=== PATIENT | female | born 1945 | race Caucasian/White ===

== ENCOUNTER → 2017-05-15 | Outpatient (CLI) | payer MEDICARE, SELFPAY ==
[~2017-05-15] MED LIST: ACET325 PO; ACETAMINOPHEN500 MG PO; ALPR.25 PO; AZELASTINE137 MCG/0.; Amitiza24 MCG PO; Amitiza8 MCG; Atrovent Inha12.9 GM INH; Bactrim 400-801 EACH PO; CEPH500 PO; CIPR500 PO; COMBIVENT RESPIM4 GM; COMBIVENT RESPIM4 GM INH; Cleocin HCl300 MG PO; Col-Rite100 MG PO; Colace100 MG PO; DIPH50; DIPH50 PO; DOCU100 PO; DOXY100T53 PO; ENOX40I SC; ESCI10 PO; FLUSAL1005 INH; Fibercon625 MG PO; GAVILAX17 GM; GAVILAX17 GM PO; HEARTBURN RELI150 MG PO; HYDCOR2.5C PR; HYDR1TAB94 PO; IPRAOI INH; LINZESS145 MCG PO; LINZESS290 MCG PO; MELA3 PO; METO25 PO; METRIBP PO; MILK OF MAGNESIA PO; MIRALAX17 GM PO; MONT10T PO; MOVANTIK25 MG; NITR100 PO; Norco 5-325 Ta1 EACH PO; Norco 7.5-3251 EACH PO; OMEPRAZOLE20 MG PO; ONDA4ODT MM; ONDA8 PO; OXYACE5T PO; OXYB5 PO; OXYC5; OXYC5 PO; Omeprazole20 M1; Omeprazole20 M1 PO; Percocet 5-3251 EACH PO; Phenergan25 MG; Phenergan25 MG PR; Prilosec Otc20 MG; Prilosec20 MG PO; Pyridium200 MG PO; RANI150 PO; SENN187 PO; SIME80CH; SIME80CH PO; Senna Plus Tab1 EACH PO; Ultram50 MG PO; Zofran Odt4 MG PO; Zofran Odt4 MG SL
== END | disposition home or self-care (01) ==
LOC: PLD 11:45 → LAB SHORT 11:45
DX: L57.0 Actinic keratosis (principal)
CPT/HCPCS: 88305

== ENCOUNTER 2017-06-03 12:43 | Inpatient (IN) | payer MEDICARE, SELFPAY ==
[~2017-06-03] VITALS: Ht 167.6 cm; Wt 82.8 kg
[~2017-06-03 12:43] MED LIST changes: -Amitiza8 MCG; -Atrovent Inha12.9 GM INH; -COMBIVENT RESPIM4 GM; -DIPH50; -ESCI10 PO; -Fibercon625 MG PO; -GAVILAX17 GM; -HEARTBURN RELI150 MG PO; -HYDR1TAB94 PO; -LINZESS145 MCG PO; -MELA3 PO; -MOVANTIK25 MG; -OMEPRAZOLE20 MG PO; -OXYC5; -Omeprazole20 M1; -SIME80CH; -Senna Plus Tab1 EACH PO
[2017-06-03] MEDS ORDERED: Amitiza8 MCG (21:24)
[2017-06-03] MEDS ORDERED: ACET325 PO (22:19)
[2017-06-03] MEDS ORDERED: DIPH50 (22:29)
[2017-06-03] MEDS ORDERED: Omeprazole20 M1 (22:31)
[2017-06-03] MEDS ORDERED: OXYC5 (22:33)
[2017-06-03] MEDS ORDERED: GAVILAX17 GM (22:34)
[2017-06-03] MEDS ORDERED: SIME80CH (22:36)
[2017-06-03] MEDS ORDERED: RANI150 PO (22:36)
[2017-06-03] MEDS ORDERED: MOVANTIK25 MG (22:41)
[2017-06-04 05:42] LABS: BASOPHILS ABSOLUTE AUTO 0.02 K/mm3 (0.00-0.23); BASOPHILS PERCENT AUTO 0 % (0-2); EOSINOPHILS ABSOLUTE AUTO 0.08 K/mm3 (0.00-0.68); EOSINOPHILS PERCENT AUTO 1 % (0-6); Hematocrit 35.2 % (33.0-51.0); Hemoglobin 11.5 g/dL (11.5-16.0); IMMATURE GRAN ABSOLUTE AUTO 0.02 K/mm3 (0.00-0.10); IMMATURE GRAN PERCENT AUTO 0 % (0-1); LYMPHOCYTES ABSOLUTE AUTO 1.26 K/mm3 (0.84-5.20); LYMPHOCYTES PERCENT AUTO 19 % (21-46); MONOCYTES ABSOLUTE AUTO 0.52 K/mm3 (0.16-1.47); MONOCYTES PERCENT AUTO 8 % (4-13); Mean Corpuscular HGB 29.8 pg (26.0-34.0); Mean Corpuscular HGB Conc 32.7 g/dL (31.5-36.5); Mean Corpuscular Volume 91 fL (80-100); Mean Platelet Volume 10.2 fL (9.1-12.4); NEUTROPHILS ABSOLUTE AUTO 4.84 K/mm3 (1.96-9.15); NEUTROPHILS PERCENT AUTO 72 % (41-73); Platelet Count 128 K/mm3 (150-400); RDW Standard Deviation 42.6 fL (35.1-46.3); Red Blood Cell Count 3.86 M/mm3 (3.80-5.20); White Blood Cell Count 6.74 K/mm3 (4.00-11.30)
[2017-06-04 05:57] LABS: Bun/Creatinine Ratio 16.3 (12.0-20.0); Calcium, Blood 8.3 mg/dL (8.5-10.1); Creatinine, Blood 1.04 mg/dL (0.40-1.00); Potassium, Blood 4.2 mmol/L (3.5-5.5)
[2017-06-05 04:30] LABS: PCO2 Arterial 58.5 mmHg (35-45); PO2 Arterial 81.1 mmHg (80-100)
[2017-06-05 04:31] LABS: pH Blood Arterial 7.13 (7.35-7.45)
[2017-06-05 05:15] LABS: BASOPHILS ABSOLUTE AUTO 0.02 K/mm3 (0.00-0.23); BASOPHILS PERCENT AUTO 0 % (0-2); EOSINOPHILS ABSOLUTE AUTO 0.02 K/mm3 (0.00-0.68); EOSINOPHILS PERCENT AUTO 0 % (0-6); Hematocrit 37.4 % (33.0-51.0); Hemoglobin 12.3 g/dL (11.5-16.0); IMMATURE GRAN PERCENT AUTO 1 % (0-1); LYMPHOCYTES ABSOLUTE AUTO 1.06 K/mm3 (0.84-5.20); LYMPHOCYTES PERCENT AUTO 9 % (21-46); MONOCYTES ABSOLUTE AUTO 1.02 K/mm3 (0.16-1.47); MONOCYTES PERCENT AUTO 8 % (4-13); Mean Corpuscular HGB 30.4 pg (26.0-34.0); Mean Corpuscular HGB Conc 32.9 g/dL (31.5-36.5); Mean Corpuscular Volume 92 fL (80-100); NEUTROPHILS ABSOLUTE AUTO 10.16 K/mm3 (1.96-9.15); NEUTROPHILS PERCENT AUTO 82 % (41-73); RDW Coefficient Variation 13.6 % (11.7-14.2); RDW Standard Deviation 45.8 fL (35.1-46.3); Red Blood Cell Count 4.05 M/mm3 (3.80-5.20); White Blood Cell Count 12.38 K/mm3 (4.00-11.30)
[2017-06-05 05:36] LABS: Calcium, Blood 8.1 mg/dL (8.5-10.1); Creatinine, Blood 1.64 mg/dL (0.40-1.00); Magnesium, Blood 2.1 mg/dL (1.6-2.4); Potassium, Blood 4.9 mmol/L (3.5-5.5)
[2017-06-05 05:38] LABS: Mean Platelet Volume 10.6 fL (9.1-12.4)
[2017-06-05 05:39] LABS: Platelet Count 67 K/mm3 (150-400)
[2017-06-05 09:10] LABS: Bun/Creatinine Ratio 13.7 (12.0-20.0); Calcium, Blood 8.1 mg/dL (8.5-10.1); Creatinine, Blood 1.39 mg/dL (0.40-1.00); Potassium, Blood 4.8 mmol/L (3.5-5.5)
[2017-06-05 10:31] LABS: PCO2 Arterial 41.8 mmHg (35-45); PO2 Arterial 95.6 mmHg (80-100); pH Blood Arterial 7.38 (7.35-7.45)
[2017-06-06 05:26] LABS: BASOPHILS ABSOLUTE AUTO 0.01 K/mm3 (0.00-0.23); BASOPHILS PERCENT AUTO 0 % (0-2); EOSINOPHILS ABSOLUTE AUTO 0.04 K/mm3 (0.00-0.68); EOSINOPHILS PERCENT AUTO 1 % (0-6); Hematocrit 36.1 % (33.0-51.0); Hemoglobin 11.6 g/dL (11.5-16.0); IMMATURE GRAN ABSOLUTE AUTO 0.02 K/mm3 (0.00-0.10); IMMATURE GRAN PERCENT AUTO 1 % (0-1); LYMPHOCYTES ABSOLUTE AUTO 0.85 K/mm3 (0.84-5.20); LYMPHOCYTES PERCENT AUTO 21 % (21-46); MONOCYTES PERCENT AUTO 7 % (4-13); Mean Corpuscular HGB 30.1 pg (26.0-34.0); Mean Corpuscular HGB Conc 32.1 g/dL (31.5-36.5); Mean Corpuscular Volume 94 fL (80-100); Mean Platelet Volume 10.1 fL (9.1-12.4); NEUTROPHILS ABSOLUTE AUTO 2.86 K/mm3 (1.96-9.15); NEUTROPHILS PERCENT AUTO 70 % (41-73); Platelet Count 105 K/mm3 (150-400); RDW Coefficient Variation 13.4 % (11.7-14.2); RDW Standard Deviation 45.2 fL (35.1-46.3); Red Blood Cell Count 3.85 M/mm3 (3.80-5.20); White Blood Cell Count 4.08 K/mm3 (4.00-11.30)
[2017-06-06 06:09] LABS: Albumin/Globulin Ratio 0.8 (0.8-1.8); Bilirubin, Total 0.3 mg/dL (0.1-1.0); Calcium, Blood 8.5 mg/dL (8.5-10.1); Creatinine, Blood 1.19 mg/dL (0.40-1.00); Globulin, Blood 3.6 g/dL (2.2-4.0); Potassium, Blood 4.2 mmol/L (3.5-5.5); Total Protein, Blood 6.6 g/dL (6.4-8.2)
[2017-06-08 05:55] LABS: BASOPHILS ABSOLUTE AUTO 0.01 K/mm3 (0.00-0.23); BASOPHILS PERCENT AUTO 0 % (0-2); EOSINOPHILS ABSOLUTE AUTO 0.04 K/mm3 (0.00-0.68); EOSINOPHILS PERCENT AUTO 1 % (0-6); Hematocrit 28.2 % (33.0-51.0); Hemoglobin 9.3 g/dL (11.5-16.0); IMMATURE GRAN ABSOLUTE AUTO 0.02 K/mm3 (0.00-0.10); IMMATURE GRAN PERCENT AUTO 0 % (0-1); LYMPHOCYTES ABSOLUTE AUTO 1.33 K/mm3 (0.84-5.20); LYMPHOCYTES PERCENT AUTO 24 % (21-46); MONOCYTES ABSOLUTE AUTO 0.38 K/mm3 (0.16-1.47); MONOCYTES PERCENT AUTO 7 % (4-13); Mean Corpuscular HGB 30.3 pg (26.0-34.0); Mean Corpuscular Volume 92 fL (80-100); Mean Platelet Volume 9.7 fL (9.1-12.4); NEUTROPHILS ABSOLUTE AUTO 3.67 K/mm3 (1.96-9.15); NEUTROPHILS PERCENT AUTO 67 % (41-73); Platelet Count 104 K/mm3 (150-400); RDW Coefficient Variation 13.5 % (11.7-14.2); Red Blood Cell Count 3.07 M/mm3 (3.80-5.20); White Blood Cell Count 5.45 K/mm3 (4.00-11.30)
[2017-06-11] MEDS ORDERED: Senna Plus Tab1 EACH PO (10:57)
[2017-06-11] MEDS ORDERED: HYDR1TAB94 PO (10:58)
[2017-06-11] MEDS ORDERED: MELA3 PO (10:58)
[2018-04-17] MEDS ORDERED: Atrovent Inha12.9 GM INH (13:32)
[2018-04-17] MEDS ORDERED: MONT10T PO (13:32)
[2018-04-17] MEDS ORDERED: ESCI10 PO (13:33)
[2018-04-17] MEDS ORDERED: COMBIVENT RESPIM4 GM (13:33)
[2018-04-17] MEDS ORDERED: HEARTBURN RELI150 MG PO (13:34)
[2018-04-17] MEDS ORDERED: OMEPRAZOLE20 MG PO (13:34)
[2018-04-17] MEDS ORDERED: ALPR.25 PO (13:34)
[2018-04-17] MEDS ORDERED: Fibercon625 MG PO (13:34)
[2018-04-17] MEDS ORDERED: LINZESS145 MCG PO (13:35)
== END 2017-06-11 14:47 | disposition home health service (06) | DRG 480 ==
LOC: ER 12:43 → MEDS 12:44 → ICUE 06-04 16:06 → MEDS 06-05 04:31 → ICUE 06-05 04:32 → MEDS 06-05 04:50 → ICUE 06-05 04:52 → MEDS 06-05 20:53 → ENPENDDIS 06-11 10:11 → MEDS 06-11 14:47
PROVIDERS: Family Medicine; Internal Medicine; Orthopaedic Surgery
PROC: 0QS604Z Reposition Right Upper Femur with Internal Fixation Device, Open Approach (ICD-10-PCS; principal; 2017-06-06 13:30)
DX: S72.144A Nondisplaced intertrochanteric fracture of right femur, initial encounter for closed fracture (principal); J96.01 Acute respiratory failure with hypoxia; E87.2 Acidosis; N18.3 Chronic kidney disease, stage 3 (moderate); G47.00 Insomnia, unspecified; G89.29 Other chronic pain; W01.0XXA Fall on same level from slipping, tripping and stumbling without subsequent striking against object, initial encounter; Y92.009 Unspecified place in unspecified non-institutional (private) residence as the place of occurrence of the external cause; M16.0 Bilateral primary osteoarthritis of hip; S46.911A Strain of unspecified muscle, fascia and tendon at shoulder and upper arm level, right arm, initial encounter; J45.909 Unspecified asthma, uncomplicated; K59.00 Constipation, unspecified; T40.605A Adverse effect of unspecified narcotics, initial encounter; Z87.891 Personal history of nicotine dependence; Z85.51 Personal history of malignant neoplasm of bladder; Z79.899 Other long term (current) drug therapy; Z88.5 Allergy status to narcotic agent; Z88.0 Allergy status to penicillin; Z88.2 Allergy status to sulfonamides; Z88.8 Allergy status to other drugs, medicaments and biological substances
CPT/HCPCS: 36415; 36600; 70450; 71045; 72170; 72192; 73030; 73552; 73610; 73721; 80048; 80053; 82803; 82947; 83605; 83735; 85025; 87040; 93005; 93010; 94640; 94660; 94760; 94762; 96361; 96372; 96374; 96375; 96376; 97116; 97161; 97162; 97165; 97166; 97530; 97535; 99285; C1713; C1769; G0378; G8978; G8979; G8987; G8988; G8989; J1100; J1170; J1650; J1956; J2250; J2310; J2405; J3010; J3490; J7030; J7120

== ENCOUNTER → 2017-11-03 | Outpatient (CLI) | payer MEDICARE, SELFPAY ==
[~2017-11-03] MED LIST changes: +Amitiza8 MCG; +DIPH50; +GAVILAX17 GM; +HYDR1TAB94 PO; +MELA3 PO; +MOVANTIK25 MG; +OXYC5; +Omeprazole20 M1; +SIME80CH; +Senna Plus Tab1 EACH PO
[2017-11-03 13:44] LABS: Bilirubin, Urine Neg (Neg); Blood, Urine Neg (Neg); Glucose Qualitative, Urine Neg (Neg); Ketones, Urine Neg (Neg); Leukocyte Esterase, Urine Neg (Neg); Nitrite, Urine Neg (Neg); Protein, Urine Neg (Neg); Urobilinogen, Urine NORM (Normal); pH, Urine 6.5 (5.0-8.0)
[2017-11-03 14:13] LABS: Appearance, Urine Clear (Clear); Color, Urine Yellow (P-Yellow)
== END | disposition home or self-care (01) ==
LOC: LAB 13:14 → LAB SHORT 13:14
PROVIDERS: Internal Medicine Hematology & Oncology
DX: N39.0 Urinary tract infection, site not specified (principal)
CPT/HCPCS: 81003

== ENCOUNTER → 2017-12-12 | Outpatient (CLI) | payer MEDICARE, SELFPAY ==
[2017-12-12 12:48] LABS: Source, Urine Clean Catch
[2017-12-12 15:57] LABS: Appearance, Urine Clear (Clear); Bilirubin, Urine Neg (Neg); Blood, Urine 5+ (Neg); Color, Urine Yellow (P-Yellow); Glucose Qualitative, Urine Neg (Neg); Ketones, Urine Neg (Neg); Leukocyte Esterase, Urine 1+ (Neg); Nitrite, Urine Neg (Neg); Protein, Urine Neg (Neg); Urobilinogen, Urine NORM (Normal); pH, Urine 6.5 (5.0-8.0)
[2017-12-12 16:13] LABS: Bacteria Rare /hpf; Squamous Epithelial Cells Rare /hpf (Few)
== END | disposition home or self-care (01) ==
LOC: LAB SHORT 12:46 → LAB 12:46
PROVIDERS: Internal Medicine
DX: R31.9 Hematuria, unspecified (principal)
CPT/HCPCS: 81001; 87086

== ENCOUNTER 2018-04-29 10:41 | Day surgery (SDC) | payer MEDICARE, OTHER ==
[~2018-04-29] VITALS: Ht 157.5 cm; Wt 81.7 kg
[~2018-04-29 10:41] MED LIST changes: +Atrovent Inha12.9 GM INH; +COMBIVENT RESPIM4 GM; +ESCI10 PO; +Fibercon625 MG PO; +HEARTBURN RELI150 MG PO; +LINZESS145 MCG PO; +OMEPRAZOLE20 MG PO
== END 2018-04-29 13:12 | disposition home or self-care (01) ==
LOC: ORSCSDS 10:41
PROVIDERS: Internal Medicine Gastroenterology
PROC: 0DBM8ZX Excision of Descending Colon, Via Natural or Artificial Opening Endoscopic, Diagnostic (ICD-10-PCS; principal; 2018-04-29 13:00)
DX: R19.4 Change in bowel habit (principal); K63.5 Polyp of colon; Z86.010 Personal history of colon polyps; K64.4 Residual hemorrhoidal skin tags; K64.8 Other hemorrhoids; N18.9 Chronic kidney disease, unspecified; F41.8 Other specified anxiety disorders; K21.9 Gastro-esophageal reflux disease without esophagitis; Z68.33 Body mass index [BMI] 33.0-33.9, adult; E66.9 Obesity, unspecified; Z79.82 Long term (current) use of aspirin; Z79.899 Other long term (current) drug therapy
CPT/HCPCS: 88305; J7120

== ENCOUNTER 2018-06-25 19:39 | Emergency (ER) | payer MEDICARE, OTHER ==
[~2018-06-25] VITALS: Ht 167.6 cm; Wt 78.5 kg
[~2018-06-25 19:39] MED LIST changes: -COMBIVENT RESPIM4 GM
[2018-06-25 20:28] LABS: BASOPHILS ABSOLUTE AUTO 0.03 K/mm3 (0.00-0.23); BASOPHILS PERCENT AUTO 0 % (0-2); EOSINOPHILS PERCENT AUTO 0 % (0-6); Hematocrit 41.7 % (33.0-51.0); Hemoglobin 13.5 g/dL (11.5-16.0); IMMATURE GRAN ABSOLUTE AUTO 0.06 K/mm3 (0.00-0.10); IMMATURE GRAN PERCENT AUTO 0 % (0-1); LYMPHOCYTES ABSOLUTE AUTO 1.19 K/mm3 (0.84-5.20); LYMPHOCYTES PERCENT AUTO 8 % (21-46); MONOCYTES ABSOLUTE AUTO 0.79 K/mm3 (0.16-1.47); MONOCYTES PERCENT AUTO 6 % (4-13); Mean Corpuscular HGB 31.5 pg (26.0-34.0); Mean Corpuscular HGB Conc 32.4 g/dL (31.5-36.5); Mean Corpuscular Volume 97 fL (80-100); Mean Platelet Volume 9.8 fL (9.1-12.4); NEUTROPHILS ABSOLUTE AUTO 12.37 K/mm3 (1.96-9.15); NEUTROPHILS PERCENT AUTO 86 % (41-73); Platelet Count 178 K/mm3 (150-400); RDW Coefficient Variation 13.6 % (11.7-14.2); Red Blood Cell Count 4.28 M/mm3 (3.80-5.20); White Blood Cell Count 14.44 K/mm3 (4.00-11.30)
[2018-06-25 20:40] LABS: Albumin/Globulin Ratio 1.1 (0.8-1.8); Bilirubin, Total 0.5 mg/dL (0.1-1.0); Bun/Creatinine Ratio 16.3 (12.0-20.0); Calcium, Blood 8.7 mg/dL (8.5-10.1); Creatinine, Blood 2.03 mg/dL (0.40-1.00); Globulin, Blood 3.8 g/dL (2.2-4.0); Potassium, Blood 4.3 mmol/L (3.5-5.5); Total Protein, Blood 7.8 g/dL (6.4-8.2)
[2018-06-25] MEDS ORDERED: HYDCOR2.5C PR (21:25)
[2018-06-25] MEDS ORDERED: Pedi-Dri 100,0060 GM TOP (21:26)
[2018-06-25] MEDS ORDERED: Zantac150 MG PO (21:26)
[2018-06-25] MEDS ORDERED: ONDA4 PO (21:27)
[2018-06-25] MEDS ORDERED: HYDACE25S PR (21:28)
[2018-06-25] MEDS ORDERED: ALBU90OI6 INH (21:31)
== END 2018-06-26 | disposition short-term general hospital (02) ==
LOC: ER 19:39
PROVIDERS: Emergency Medicine
DX: K56.609 Unspecified intestinal obstruction, unspecified as to partial versus complete obstruction (principal); N17.9 Acute kidney failure, unspecified; E86.0 Dehydration; Z88.2 Allergy status to sulfonamides; Z88.5 Allergy status to narcotic agent; Z88.0 Allergy status to penicillin; Z88.8 Allergy status to other drugs, medicaments and biological substances; Z79.899 Other long term (current) drug therapy; Z87.891 Personal history of nicotine dependence
CPT/HCPCS: 74177; 80053; 83690; 85025; 96361-59; 96374-59; 96375-59; 99285-25; J2405; J3010; J7030; Q9967

== ENCOUNTER 2018-11-27 07:11 | Day surgery (SDC) | payer MEDICARE, OTHER ==
[~2018-11-27 07:11] MED LIST changes: +ALBU90OI6 INH; +HYDACE25S PR; +ONDA4 PO; +Pedi-Dri 100,0060 GM TOP; +Zantac150 MG PO
== END 2018-11-27 22:43 | disposition home or self-care (01) ==
LOC: MOI US 07:11
DX: C77.3 Secondary and unspecified malignant neoplasm of axilla and upper limb lymph nodes (principal); C67.2 Malignant neoplasm of lateral wall of bladder
CPT/HCPCS: 38505; 76942; 88305; 88341; 88342

== ENCOUNTER 2019-01-27 11:21 | Day surgery (SDC) | payer MEDICARE, OTHER ==
[~2019-01-27] VITALS: Ht 160 cm; Wt 87.6 kg
[2019-01-27] MEDS ORDERED: POLYETHYLENE G500 G1 (12:47)
== END 2019-01-27 14:02 | disposition home or self-care (01) ==
LOC: ORSCSDS 11:21
PROVIDERS: Internal Medicine Gastroenterology
PROC: 0D758ZZ Dilation of Esophagus, Via Natural or Artificial Opening Endoscopic (ICD-10-PCS; 2019-01-27)
PROC: 0DB68ZX Excision of Stomach, Via Natural or Artificial Opening Endoscopic, Diagnostic (ICD-10-PCS; principal; 2019-01-27 13:00)
PROC: 0D598ZZ Destruction of Duodenum, Via Natural or Artificial Opening Endoscopic (ICD-10-PCS; principal; 2019-01-27 13:00)
DX: R13.10 Dysphagia, unspecified (principal); K29.50 Unspecified chronic gastritis without bleeding; Q27.33 Arteriovenous malformation of digestive system vessel; K44.9 Diaphragmatic hernia without obstruction or gangrene; R11.0 Nausea; J45.909 Unspecified asthma, uncomplicated; N19 Unspecified kidney failure; J44.9 Chronic obstructive pulmonary disease, unspecified; Z79.899 Other long term (current) drug therapy; Z87.891 Personal history of nicotine dependence
CPT/HCPCS: 88305; 88342; J2704; J7120

== ENCOUNTER 2019-02-22 15:37 | Emergency (ER) | payer MEDICARE, OTHER ==
[~2019-02-22] VITALS: Ht 157.5 cm; Wt 86.2 kg
[~2019-02-22 15:37] MED LIST changes: +POLYETHYLENE G500 G1
== END 2019-02-22 19:54 | disposition home or self-care (01) ==
LOC: ER 15:37
DX: S33.5XXA Sprain of ligaments of lumbar spine, initial encounter (principal); S23.3XXA Sprain of ligaments of thoracic spine, initial encounter; M47.816 Spondylosis without myelopathy or radiculopathy, lumbar region; Z87.891 Personal history of nicotine dependence; Z88.8 Allergy status to other drugs, medicaments and biological substances; Z88.5 Allergy status to narcotic agent; Z88.0 Allergy status to penicillin; Z88.2 Allergy status to sulfonamides; Z79.899 Other long term (current) drug therapy; Z79.51 Long term (current) use of inhaled steroids; X50.1XXA Overexertion from prolonged static or awkward postures, initial encounter
CPT/HCPCS: 72070; 72100; 99283-25

== ENCOUNTER → 2019-10-25 | Outpatient (CLI) | payer MEDICARE, OTHER ==
[~2019-10-25] MED LIST changes: +FURO40 PO; +Moviprep Powde1 EACH PO; +POTA10T PO
== END | disposition home or self-care (01) ==
LOC: LAB SHORT 08:12 → PLD 08:12
DX: L57.0 Actinic keratosis (principal)
CPT/HCPCS: 88305

== ENCOUNTER 2020-01-28 13:41 | Emergency (ER) | payer MEDICARE, OTHER ==
[~2020-01-28] VITALS: Ht 160 cm; Wt 77.6 kg
== END 2020-01-28 18:45 | disposition home or self-care (01) ==
LOC: ER 13:41
DX: R10.2 Pelvic and perineal pain (principal); N95.2 Postmenopausal atrophic vaginitis; Z88.2 Allergy status to sulfonamides; Z88.5 Allergy status to narcotic agent; Z88.8 Allergy status to other drugs, medicaments and biological substances; Z88.0 Allergy status to penicillin; Z79.899 Other long term (current) drug therapy; Z87.891 Personal history of nicotine dependence
CPT/HCPCS: 99283

== ENCOUNTER → 2020-03-09 | Outpatient (CLI) | payer MEDICARE, OTHER | LOC: PLD 08:53 → LAB SHORT 08:53 | DX: D23.112 Other benign neoplasm of skin of right lower eyelid, including canthus (principal) | CPT/HCPCS: 88305 ==